=== PATIENT | female | born 1960 | race Caucasian/White ===

== ENCOUNTER 2017-06-26 20:54 | Inpatient (IN) | payer BC ==
[~2017-06-26] VITALS: Ht 170.2 cm; Wt 74.4 kg
[2017-06-26 21:03] VITALS: BP_SYST 162
[2017-06-26] MEDS ORDERED: KETOROLAC TROMETHAMINE 60 MG/2 ML VIAL IM ONE (21:15)
[2017-06-26] MEDS ORDERED: fentaNYL CITRATE/PF 100 MCG/2 ML AMP IM ONE (21:30)
[2017-06-26] MEDS ORDERED: NACL 0.9% 1,000 ML IV ONE (22:15)
[2017-06-26] MEDS ORDERED: ONDANSETRON HCL 4 MG/2 ML VIAL IVP PRN (22:30)
[2017-06-26 22:50] VITALS: BP_SYST 163
[2017-06-26] MEDS: MORPHINE 2 MG/ML INJ. SYRINGE IVP PRN (23:13)
[2017-06-26] MEDS ORDERED: FLU VACC QS 2017-18(36MOS+)/PF 0.5 ML/SYR SYRINGE I.M. PRN (23:30)
[2017-06-27 00:17] VITALS: BP_SYST 163
[2017-06-27] MEDS: MORPHINE 2 MG/ML INJ. SYRINGE IVP PRN ×4 (04:01→20:30)
[2017-06-27 04:45] VITALS: BP_SYST 143
[2017-06-27 08:00] VITALS: BP_SYST 148
[2017-06-27 11:25] VITALS: BP_SYST 139
[2017-06-27] MEDS ORDERED: KETOROLAC TROMETHAMINE 30 MG VIAL IM ONE (12:30)
[2017-06-27] MEDS ORDERED: KETOROLAC TROMETHAMINE 30 MG VIAL IVP ONE (14:45)
[2017-06-27 14:55] LABS: BASOPHILS % (AUTO) 0.2 % (0.0-2.0); EOSINOPHILS # (AUTO) 0.1 K/uL (0.0-0.4); HEMOGLOBIN 12.7 g/dL (12.0-16.0); LYMPHOCYTES # (AUTO) 1.3 K/uL (1.0-5.5); LYMPHOCYTES % (AUTO) 15.3 % (20.5-51.5); MEAN CORPUSCULAR HEMOGLOBIN 28 pg (27-31); MEAN CORPUSCULAR HGB CONC 33 % (32-36); MEAN CORPUSCULAR VOLUME 83 fL (79.0-98.0); MONOCYTES # (AUTO) 0.7 K/uL (0.0-1.0); MONOCYTES % (AUTO) 7.5 % (1.7-9.3); NEUTROPHILS # (AUTO) 6.7 K/uL (1.8-7.7); PLATELET COUNT (AUTO) 199 K/uL (130-430); RED BLOOD CELL COUNT(AUTO) 4.58 MIL/uL (4.2-6.2); RED CELL DISTRIBUTION WIDTH 12.1 % (9.0-15.0); WHITE BLOOD COUNT (AUTO) 8.8 K/uL (4.8-10.8)
[2017-06-27 15:28] VITALS: BP_SYST 145
[2017-06-27 20:00] VITALS: BP_SYST 145
[2017-06-28] MEDS ORDERED: LEVOTHYROXINE SODIUM 0.075 MG TABLET PO SCH (06:00)
[2017-06-28] MEDS ORDERED: LISINOPRIL 10 MG TABLET (PRINIVIL) PO SCH (09:00)
== END 2017-06-27 20:50 | disposition home or self-care (01) | DRG 563 ==
LOC: SED 20:54 → SMU 22:20
DX: S42.202A Unspecified fracture of upper end of left humerus, initial encounter for closed fracture (principal); E03.9 Hypothyroidism, unspecified; I10 Essential (primary) hypertension; Y92.89 Other specified places as the place of occurrence of the external cause; W01.198A Fall on same level from slipping, tripping and stumbling with subsequent striking against other object, initial encounter; Y99.8 Other external cause status; Z83.3 Family history of diabetes mellitus; Z82.49 Family history of ischemic heart disease and other diseases of the circulatory system; Z88.2 Allergy status to sulfonamides; Y93.89 Activity, other specified
CPT/HCPCS: 36415; 85025; J1885; J2270; J3010; J7030; Q2037

== ENCOUNTER 2022-10-18 17:48 | Emergency (ER) | payer BC ==
[~2022-10-18] VITALS: Ht 165.1 cm; Wt 74.8 kg
[2022-10-18 17:48] VITALS: BP_SYST 199
--- NOTE | 2022-10-18 17:50 | NUR ---
BROUGHT BACK TO BED #6 VIA WHEELCHAIR, PT IS ACTIVELY VOMITING, TRIAGED. REPORT GIVEN TO JULIAN
--- NOTE | 2022-10-18 18:09 | NUR ---
PT BIB SON FROM HOME, TAKEN TO BED 6 IN WHEELCHAIR. PT A&Ox4, ABLE TO MAKE NEEDS KNOWN. PT C/O LOWER ABD PAIN THAT RADIATES TO LEFT FLANK BEGINNING TODAY.PT RATES PAIN 04/02. PT STATES HAS N/V. PT DENIES FEVER. PT DENIES PAIN WHEN URINATING. PT STATES SHE NOTICED URINE DARK COLOR. PT HAS HISTORY OF HTN. SAFETY PRECAUTIONS IN PLACE.
--- NOTE | 2022-10-18 18:15 | NUR ---
ER at bedside examining patient.
[2022-10-18] MEDS ORDERED: KETOROLAC TROMETHAMINE 60 MG/2 ML VIAL IM ONE (18:30)
[2022-10-18 19:02] LABS: BASOPHILS % (AUTO) 0.3 % (0.0-2.0); EOSINOPHILS % (AUTO) 0.5 % (0.0-4.0); HEMATOCRIT 43.7 % (36-48); HEMOGLOBIN 14.7 g/dL (12.0-16.0); LYMPHOCYTES % (AUTO) 10.7 % (20.5-51.5); MEAN CORPUSCULAR HEMOGLOBIN 28 pg (27-31); MEAN CORPUSCULAR HGB CONC 34 % (32-36); MEAN CORPUSCULAR VOLUME 83 fL (79.0-98.0); MONOCYTES # (AUTO) 0.3 K/uL (0.0-1.0); MONOCYTES % (AUTO) 3.7 % (1.7-9.3); NEUTROPHILS # (AUTO) 7.9 K/uL (1.8-7.7); NEUTROPHILS % (AUTO) 84.8 % (40.0-70.0); PLATELET COUNT (AUTO) 206 K/uL (130-430); RED CELL DISTRIBUTION WIDTH 13.4 % (9.0-15.0); WHITE BLOOD COUNT (AUTO) 9.3 K/uL (4.8-10.8)
[2022-10-18 19:18] LABS: ANION GAP 9 (5-15); CALCIUM 9.1 mg/dL (8.4-11.0); CHLORIDE 105 mmol/L (98-107); CREATININE 0.81 mg/dL (0.55-1.30); GLUCOSE 162 mg/dL (70-99); UREA NITROGEN, BLOOD 20 mg/dL (8-21)
[2022-10-18 19:19] LABS: BILIRUBIN,URINE NEGATIVE (NEGATIVE); BLOOD, URINE 3+ (NEGATIVE); COLOR,URINE YELLOW (YELLOW); GLUCOSE,URINE NEGATIVE (NEGATIVE); KETONES,URINE TRACE (NEGATIVE); LEUKOCYTE ESTERASE ,URINE NEGATIVE (NEGATIVE); NITRITE, URINE NEGATIVE (NEGATIVE); PROTEIN URINE 2+ (NEGATIVE); UROBILINOGEN,URINE 0.2 (0.2-1.0)
[2022-10-18 19:22] LABS: ALANINE AMINOTRANSFERASE 61 U/L (12-78); ALBUMIN 3.8 g/dL (3.4-4.8); AMYLASE 74 U/L (0-100); ASPARTATE AMINOTRANSFERASE 31 U/L (10-37); C-REACTIVE PROTEIN QUANT 0.7 mg/dL (0-0.5); LIPASE 173 U/L (73-393); TOTAL BILIRUBIN 0.4 mg/dL (0.0-1.0)
[2022-10-18 19:23] LABS: GFR AFRICAN AMERICAN 92 mL/min (>90)
--- NOTE | 2022-10-18 19:29 | NUR ---
Rosie pt to [facility]. Pt stable
[2022-10-18 19:33] VITALS: BP_SYST 190
[2022-10-18 19:35] LABS: ACETONE, SERUM NEGATIVE (NEGATIVE)
[2022-10-18] MEDS ORDERED: LISI10TA29 PO (19:36)
[2022-10-18] MEDS ORDERED: SYN75 PO (19:36)
[2022-10-18 19:37] LABS: CLARITY/URINE HAZY (CLEAR)
[2022-10-18 19:43] LABS: BACTERIA,URINE FEW /HPF (None Seen); MUCUS,URINE 1+ /LPF (None Seen); RBC,URINE >100 /HPF (0-3); WBC,URINE 0-3 /HPF (0-3)
[2022-10-18 19:44] LABS: URIC ACID CRYSTALS,URINE 0-10 /HPF (None Seen)
[2022-10-18] MEDS ORDERED: IBUP-1969 PO ×2 (19:53→20:01)
[2022-10-18] MEDS ORDERED: HYDR-3917 PO ×2 (19:53→20:01)
--- NOTE | 2022-10-18 20:00 | NUR ---
Patient given written and verbal discharge instructions and verbalizes understanding. ER MD discussed with patient the results and treatment provided. Patient in stable condition. ID arm band removed. Rx of hydrocodone/aceminophen & Ibuprofen given. Patient educated on pain management and to follow up with PMD. Opportunity for questions provided and answered. ER physician okay with discharging patient with elevated blood pressure. Pt promised to take prescribed blood pressure medication at home.
== END 2022-10-18 20:00 | disposition home or self-care (01) ==
LOC: SED 17:48
DX: N23 Unspecified renal colic (principal); R11.2 Nausea with vomiting, unspecified; I10 Essential (primary) hypertension; Z88.2 Allergy status to sulfonamides; Z79.899 Other long term (current) drug therapy
CPT/HCPCS: 99285; 74176; 80053; 81000; 82009; 82150; 83690; 85025; 86140; 36415; 76376; 96372; 83605; J1885

== ENCOUNTER 2022-10-21 18:18 | Emergency (ER) | payer BC ==
[~2022-10-21] VITALS: Ht 167.6 cm; Wt 77.1 kg
[~2022-10-21 18:18] MED LIST: HYDR-3917 PO; IBUP-1969 PO; LISI10TA29 PO; SYN75 PO
[2022-10-21 18:43] VITALS: BP_SYST 141
--- NOTE | 2022-10-21 19:00 | NUR ---
Patient to ER bed HALLWAY to gown for evaluation. Side rails up.
--- NOTE | 2022-10-21 19:20 | NUR ---
DR. JOAQUIN BEDSIDE FOR PT EVAL
--- NOTE | 2022-10-21 19:25 | NUR ---
Pt BIB family to ED with history of hypertension (lisinopril) and hypothyroidism who presents to the ED for a recheck. Patient was seen here on 10/19 for acute onset of left lower quadrant abdominal pain radiating to the left flank with associated nausea and vomiting. CT of the abdomen showed 8 x 4 x 3 mm obstructing calculus in the proximal left ureter with mild hydronephrosis. Patient was discharged home and advised to return if patient did not pass the kidney stone, which has not passed.
[2022-10-21 19:32] LABS: BASOPHILS % (AUTO) 0.4 % (0.0-2.0); EOSINOPHILS # (AUTO) 0.3 K/uL (0.0-0.4); EOSINOPHILS % (AUTO) 4.4 % (0.0-4.0); HEMATOCRIT 42.3 % (36-48); HEMOGLOBIN 13.9 g/dL (12.0-16.0); LYMPHOCYTES # (AUTO) 1.5 K/uL (1.0-5.5); LYMPHOCYTES % (AUTO) 24.3 % (20.5-51.5); MEAN CORPUSCULAR HEMOGLOBIN 27 pg (27-31); MEAN CORPUSCULAR HGB CONC 33 % (32-36); MEAN CORPUSCULAR VOLUME 83 fL (79.0-98.0); MONOCYTES # (AUTO) 0.5 K/uL (0.0-1.0); NEUTROPHILS % (AUTO) 62.9 % (40.0-70.0); PLATELET COUNT (AUTO) 214 K/uL (130-430); RED BLOOD CELL COUNT(AUTO) 5.11 MIL/uL (4.2-6.2); RED CELL DISTRIBUTION WIDTH 13.6 % (9.0-15.0); WHITE BLOOD COUNT (AUTO) 6.3 K/uL (4.8-10.8)
[2022-10-21 19:51] LABS: ALBUMIN 3.6 g/dL (3.4-4.8); CALCIUM 9.1 mg/dL (8.4-11.0); CREATININE 1.1 mg/dL (0.55-1.30); TOTAL BILIRUBIN 0.5 mg/dL (0.0-1.0)
[2022-10-21 20:45] VITALS: BP_SYST 141
--- NOTE | 2022-10-21 20:45 | NUR ---
Patient given written and verbal discharge instructions and verbalizes understanding. ER MD discussed with patient the results and treatment provided. Patient in stable condition. ID arm band removed. Patient educated on pain management and to follow up with PMD. Pain Scale 0/10 Opportunity for questions provided and answered.
== END 2022-10-21 20:45 | disposition home or self-care (01) ==
LOC: SED 18:18
DX: N23 Unspecified renal colic (principal); R11.2 Nausea with vomiting, unspecified; I10 Essential (primary) hypertension; Z88.2 Allergy status to sulfonamides; Z79.899 Other long term (current) drug therapy
CPT/HCPCS: 36415; 76376; 80053; 82150; 83690; 85025; 99284